=== PATIENT | female | born 1995 | race Two or more races ===

== ENCOUNTER 2024-07-05 18:02 | Emergency (ER) | payer SELFPAY ==
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
[2024-07-05 18:30] VITALS: BP 135/89; PULSE 78; RESP 16; TEMP 37.1; O2SAT 100; BMI 31.9
[2024-07-05 19:12] LABS: HCG Qualitative,Urine Negative
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
[2024-07-05] MEDS: KETOROLAC INJ 60 MG/2 ML VIAL IM (21:28)
[2024-07-05] MEDS: ACETAMINOPHEN w/COD 300-30 TABLET 2 TAB PO (21:29)
[2024-07-05 21:41] VITALS: BP 126/85; PULSE 66; RESP 18; TEMP 37.1; O2SAT 100
== END 2024-07-05 21:41 | disposition home or self-care (01) ==
PROVIDERS: Emergency Provider Emergency Medicine
DX: S20.219A Contusion of unspecified front wall of thorax, initial encounter (principal); V89.9XXA Person injured in unspecified vehicle accident, initial encounter
CPT/HCPCS: 71250; 74176; 81025; 96372; 99284; J1885; A9270